=== PATIENT | female | born 1975 | race Caucasian/White ===

== ENCOUNTER 2017-07-20 12:00 | Outpatient (RCR) | payer MEDICAID, SELFPAY ==
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
--- NOTE | 2017-10-13 15:37 | HP.PTDCSUM_ITS ---
HP - PT D/C Summary It has been my pleasure to treat MIGUEL ÁNGEL NARAYAN under orders from MANJU ROBINS, for the diagnosis of OPEN DISPLACED FRACTURE OR RIGHT CALCANEUS ROUTINE HEALING for a total of 22 visit(s). Discharge Date: Please see the following information for a summary of their discharge status. - Subjective Subjective: Doing good .. Happy with progress . Plan to cont with PT in [place]. Pateint to return to work partime per MD. Patient has plantarfascitis gave boot at night. RTD in 6weeks - Pain Right Ankle Pain Intensity (Out of 10): 3 - Overall Improvement % Improvement: 75 - Objective Objective/Function: POSTURE: slight pes planus. GAIT: mild decrease stance time heelstike to toe off. AROM: 3 degrees DF,PF 60 degrees,IN 15 degrees, eversion 5 degrees. MMT: anterior tibialis 4/5,posterior tibialis ,peroneous 4/ 5,G-S 3+/5. PROPRIOCEPTION: mild impaired right to left - Goals Goal 1:: Independant with and HEP Goal Progress: Goal Met Goal 2:: Decrease pain ankle 60% or greater to improve function with and gait. Goal Progress: Goal Met Goal 3:: Patient improve AROM DF 5 derees from 0,PF 60 degrees and inversion 10- 15 degrres to improve function. Goal Progress: Progressing Goal 4:: Patient increase strength of ankle DF 4/5,EV/IN 4-/5,PF 3+/5 to improve function with gait Goal Progress: Goal Met Goal 5:: Patient to ambulate with least restrictive device community distances with improved gait and WB with improved quality of gait Goal Progress: Goal Met Goal 6:: Patient improve proprioception right ankle to improve gait . Goal Progress: Goal Met - Plan Plan: D/C - D/C Information If there are questions or concerns regarding this patient's physical therapy, please feel free to call me at [phone]. Thank you for the referral of this patient. Sincerely, Eduardo Crowley, PT,
== END 2017-07-20 19:00 | disposition home or self-care (01) ==
LOC: PT 12:00
PROVIDERS: Family Provider Family Medicine; PCP Family Medicine
DX: S92.001D Unspecified fracture of right calcaneus, subsequent encounter for fracture with routine healing (principal); Z98.890 Other specified postprocedural states
CPT/HCPCS: 97110; 97113; 97162; 97530

== ENCOUNTER 2020-01-15 12:40 | Emergency (ER) | payer MEDICAID, SELFPAY ==
[2020-01-15 12:40] VITALS: BP 159/100; PULSE 89; RESP 18; TEMP 36.9; O2SAT 96; BMI 29.9
--- NOTE | 2020-01-15 12:45 | EKG12_ITS ---
Test Reason : CP Blood Pressure : / mmHG Vent. Rate : 087 BPM Atrial Rate : 087 BPM P-R Int : 152 ms QRS Dur : 088 ms QT Int : 362 ms P-R-T Axes : 046 071 054 degrees QTc Int : 435 ms Normal sinus rhythm Normal ECG Confirmed by TEA CORTES, CASPER ([id number]), food editor MICKEY DA SILVA ([id number] on 01/16/2020 2:36:50 PM Referred By: RULA Confirmed By:MARIA METCALF MD
--- NOTE | 2020-01-15 12:46 | ED.RN ---
NO OLD EKGS
--- NOTE | 2020-01-15 12:49 | EKG12_ITS ---
Test Reason : CP REPEAT Blood Pressure : / mmHG Vent. Rate : 063 BPM Atrial Rate : 063 BPM P-R Int : 136 ms QRS Dur : 086 ms QT Int : 398 ms P-R-T Axes : 052 062 053 degrees QTc Int : 407 ms Normal sinus rhythm Normal ECG Confirmed by TEA CORTES, CASPER ([id number]), graphic editor IKER PAT ([id number]) on 01/16/2020 12:09:40 PM Referred By: MARYBEL Confirmed By:MARIA METCALF MD
--- NOTE | 2020-01-15 13:08 | NURSING ---
NO OLD EKGS
--- NOTE | 2020-01-15 13:30 | RAD_ITS ---
STUDY: X-RAY CHEST REASON FOR EXAM: Female, 44 years old. SUDDEN ONSET CHEST PAIN WITH RADIATION INTO RIGHT ARM TECHNIQUE: Single AP portable view of the chest. COMPARISON: None. FINDINGS: The lungs are clear and expanded. Scattered calcified granulomas. There is no demonstrated pleural abnormality. Normal size heart. Normal mediastinum and yesenia. Normal visualized pulmonary arteries. Normal visualized aortic arch and descending thoracic aorta. Normal visualized thoracic spine. Normal visualized ribs, clavicles, and shoulders. There is no demonstrated abnormality of the visualized soft tissue structures of the upper abdomen. RAD/Chest 1 View (Portable) IMPRESSION: Normal x-ray examination of the chest. Electronically Signed: Hunter Good, at 13:56 EST , Service support ,
[2020-01-15 13:33] LABS: Absolute Lymphocyte Count 2.41 X10^3/uL (0.83-4.51); Absolute Neutrophil Count 6.2 X10^3/uL (2.0-7.7); Basophil# 0.04 X10^3/uL; Basophil% 0.4 % (0-1); Eosinophil# 0.15 X10^3/uL; Eosinophils% 1.6 % (0-5); Hematocrit 37.9 % (37-47); Hemoglobin 12.3 g/dL (12.0-15.0); Lymphocyte # 2.41 X10^3/ul (4.0); Lymphocyte % 25.1 % (19-41); Mean Corp Hgb Conc 32.5 g/dL (32-36); Mean Corpuscular Hgb 30.8 pg (27.0-32.0); Mean Platelet Vol. 9.8 fl (6.2-12.0); Monocyte# 0.74 X10^3/uL; Monocyte% 7.7 % (0-10); NRBC Flagged by Analyzer 0 % (0-5); Neutrophil # 6.23 X10^3/uL (2.7-7.7); Neutrophil % 64.8 % (47-70); Platelet Count 346 K/mm3 (150-450); Prothrombin Time (Protime)PT. 12.3 SECONDS (11.7-14.9); RBC Distribution Width CV 11.9 % (11.6-14.6); RBC Distribution Width SD 41.7 fl (35.1-43.9); Red Blood Count 3.99 M/mm3 (4.2-5.4); White Blood Count 9.6 K/mm3 (4.4-11.0)
[2020-01-15 13:41] LABS: Anion Gap 5 (5-15); BUN 13 mg/dL (7-18); BUN/Creat Ratio 14.3 RATIO (10-20); Calcium,Total 9.1 mg/dL (8.5-10.1); Chloride 109 mmol/L (98-107); Creatinine, Serum 0.91 mg/dL (0.55-1.02); EST Glomerular Filtration Rate 71 mL/min (>60); Est Glom Filt Rate - Afr Amer 85 mL/min (>60); Estimated Creatinine Clearance 69.51 ml/min; Glucose 106 mg/dL (74-106); Potassium 3.5 mmol/L (3.5-5.1); Sodium Level 143 mmol/L (136-145)
[2020-01-15] MEDS: Aspirin 81 MG TAB.CHEW 324 MG PO (14:01)
[2020-01-15 14:02] VITALS: BP 165/85; PULSE 80; RESP 20; O2SAT 100
[2020-01-15 16:16] VITALS: BP 148/77; PULSE 76; RESP 16; O2SAT 98
--- NOTE | 2020-01-15 16:37 | ED.VIS.CHEST ---
History of Present Illness Chief Complaint: Chest Pain Informant: Patient Onset: Today Activity at onset: Light Activity Quality: Sharp, Stabbing Location: Right Parasternal Worsened By: Breathing Relieved By: Rest Narrative: Patient is a 44-year-old female with history of fibromyalgia, rheumatoid arthritis and degenerative disc disease presenting with chest pain. She states started approximately 1 hour prior to arrival. She states she was just walking at work but been taking it easy because she injured her back a week ago. She suddenly developed pain in her right parasternal area. She states it is sharp and stabbing in nature. It is worse with deep breathing and radiates down her right arm. She states the pain is started to subside and she has no associated sweating, nausea or vomiting. Her sister was concerned that maybe this could be her heart so she recommend she come to the ER to be evaluated further. Patient denies any injury. It is worse with direct palpation. Patient denies any swelling of her legs. She denies any history of DVT or PE. She is not on any estrogen supplements. Denies any other complaints at this time. Past Medical History - Allergies and Home Meds Allergies/Adverse Reactions: Allergies No Known Allergies Allergy (Verified 01/15/20 12:45) Primary Care Physician: Brittney Mathis WORLD HISTORY TEACHER, WORLD HISTORY TEACHER-C [Primary Care Provider] - Past Medical History: - - Fibromyalgia, chronic back pain, rheumatoid arthritis Surgical History: noncontributory Smoking Status: Never smoker Review of Systems General: Denies: Chills, Fever, Sweats Eyes: Denies: Visual changes - bilaterally, Diplopia ENT: Denies: Rhinorrhea, Sore throat Cardiovascular: Reports: Chest pain. Denies: Palpitations Respiratory: Reports: Dyspnea. Denies: Cough, Dyspnea on exertion Gastrointestinal: Denies: Abdominal pain, Nausea, Vomiting, Diarrhea, Melena, Hematochezia Genitourinary: Denies: Dysuria, Hematuria, Frequency Musculoskeletal: Denies: Back pain, Extremity Pain Skin: Denies: Rash, Wounds Neurological: Denies: Headache, Weakness, Numbness Physical Exam Vital Signs/Narrative: Vital Signs Temp Pulse Resp BP Pulse Ox 01/15/20 16:16 76 16 148/77 H 98 01/15/20 14:02 80 20 H 165/85 H 100 01/15/20 12:40 98.4 F 89 18 159/100 H 96 Inital Vital Signs reviewed: Yes General: Well nourished, Well developed, No Acute Distress Head: Normocephalic, Atraumatic Eyes: Perrl, EOMI ENT: Moist mucous membranes, No rhinorrhea Neck: Supple, Nontender Cardiovascular: Regular rate, Regular rhythm, No murmurs Respiratory: No distress, CTA bilaterally, Chest tenderness - Right anterior mid parasternal area, highly reproducible palpation Abdomen: Soft, Nontender, Nondistended, Normal bowel sounds Back: Nontender, Normal Inspection Extremities: Nontender, No edema Skin: Normal color, No rash Neurological: Alert, Oriented x3, Cranial nerves II-XII grossly intact, Normal Strength, Normal Sensation Psychological: Normal affect, Normal Mood Diagnostic/Tx/Re-eval Chest X-Ray - ED: 1 View, Read by ED Physician, Read by Radiologist, No Acute Disease Clinical Impression(s) from Imaging Studies Chest X-Ray 01/15/20 13:30 IMPRESSION: Normal x-ray examination of the chest. Electronically Signed: Hunter Good, at 13:56 EST , Service support , Laboratory Data 01/15/20 01/15/20 01/15/20 13:05 13:05 13:05 WBC 9.6 RBC 3.99 L Hgb 12.3 Hct 37.9 MCV 95.0 MCH 30.8 MCHC 32.5 RDW Std Deviation 41.7 RDW Coeff of Simone 11.9 Plt Count 346 MPV 9.8 Immature Gran % (Auto) 0.400 Neut % (Auto) 64.8 Lymph % (Auto) 25.1 [place] % (Auto) 7.7 Eos % (Auto) 1.6 Baso % (Auto) 0.4 Absolute Neuts (auto) 6.2 Absolute Lymphs (auto) 2.41 Nucleated RBC % 0 PT 12.3 INR 1.0 Sodium 143 Potassium 3.5 Chloride 109 H Carbon Dioxide 29.0 Anion Gap 5 BUN 13 Creatinine 0.91 Estim Creat Clear Calc 69.51 Est GFR (MDRD) Af Amer 85 Est GFR (MDRD) Non-Af 71 BUN/Creatinine Ratio 14.3 Glucose 106 Calcium 9.1 Troponin I < 0.015 01/15/20 16:08 WBC RBC Hgb Hct MCV MCH MCHC RDW Std Deviation RDW Coeff of Simone Plt Count MPV Immature Gran % (Auto) Neut % (Auto) Lymph % (Auto) [place] % (Auto) Eos % (Auto) Baso % (Auto) Absolute Neuts (auto) Absolute Lymphs (auto) Nucleated RBC % PT INR Sodium Potassium Chloride Carbon Dioxide Anion Gap BUN Creatinine Estim Creat Clear Calc Est GFR (MDRD) Af Amer Est GFR (MDRD) Non-Af BUN/Creatinine Ratio Glucose Calcium Troponin I < 0.015 - Rhythm Strip Rhythm Strip: Sinus Rhythm Rate: 87 Ectopy: None - EKG Initial EKG Interpretation: Sinus Rhythm, - - Sinus rhythm at a rate of 87 Normal axis Normal intervals Normal ST segments Treatment: Aspirin GRAEME Risk: No Positive GRAEME Elements Score: 0 - Medical Decision Making Patient evaluated for sudden onset of chest pain. Is pleuritic in nature. Patient is PERC negative and I do not suspect a PE as a cause of her symptoms. Her heart score is 2. She is low risk for ACS. She does not have any acute EKG changes. Troponin is negative x2. I suspect the pain is likely muscle skeletal but it could be pleuritic in nature. Patient be discharged home for outpatient follow-up. I do not think she requires extended cardiac evaluation or admission at this time. I think she stable for outpatient follow-up. She is instructed to follow-up with her primary care doctor. Patient is counseled on signs and symptoms requiring return to the emergency room. Patient verbalizes agreement and understand this plan. Patient discharged home in stable and improved condition. ED Disposition - Plan for ED Patient: Disposition: Home or Assisted Living Diagnosis: Chest pain Instructions: ED Chest Pain Atypical Unkn Cause Referrals: Brittney Mathis WORLD HISTORY TEACHER, WORLD HISTORY TEACHER-C [Primary Care Provider] -
[2020-01-15 17:06] VITALS: BP 144/89; PULSE 70; RESP 18; O2SAT 100
== END 2020-01-15 17:08 | disposition home or self-care (01) ==
PROVIDERS: Emergency Provider Emergency Medicine; PCP Nurse Practitioner Family
DX: R07.9 Chest pain, unspecified (principal)
CPT/HCPCS: 71045; 80048; 84484; 85025; 85610; 93005; 99285; A4216

== ENCOUNTER 2020-04-22 07:34 | Emergency (ER) | payer MEDICAID, SELFPAY ==
[2020-04-22 07:35] VITALS: BP 163/111; PULSE 101; RESP 20; TEMP 36; O2SAT 98; BMI 31.7
[2020-04-22 07:40] VITALS: TEMP 36; BMI 31.7
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
--- NOTE | 2020-04-22 07:46 | CT_ITS ---
STUDY: CT BRAIN WITHOUT CONTRAST REASON FOR EXAM: Female, 45 years old. FALL ON ICE HITTING BACK OF HEAD RADIATION DOSAGE (If Supplied By Facility): CTDIvol = ( 44.99 ) mGy, DLP = ( 812.98 ) mGycm TECHNIQUE: Transaxial CT imaging of the brain was performed without administration of intravenous contrast material. Coronal and sagittal reconstructions were performed. Individualized dose optimization techniques were used for this CT. COMPARISON: None. FINDINGS: Right posterior scalp hematoma near the midline. Normal calvarium. Normal size ventricles and extra-axial spaces for the patient''s age. Normal white matter tracts of the cerebral hemispheres. Normal basal ganglia and thalami. Normal brainstem. Normal cerebellum. There is no intracranial hemorrhage. There are no findings of an acute ischemic infarction. Normal visualized paranasal sinuses. CT/Brain/Head without Contrast IMPRESSION: Right posterior scalp hematoma near the midline otherwise negative noncontrast CT head scan. Electronically Signed: Sanjiv Jurado MD at 8:28 EST , Service support ,
--- NOTE | 2020-04-22 07:47 | ED.VIS.GEN ---
History of Present Illness Chief Complaint: Head Injury Informant: Patient Narrative: 45-year-old female states that 20 minutes prior to arrival she stepped onto the ice slipped and fell backwards striking her head. No known loss of consciousness. No vomiting but she does note nausea. No blood thinners. No seizure activity. Patient states that her bilateral arms were tingling that has improved. She notes some superficial cuts on her hand. She notes that her tetanus is up-to-date. She also notes some generalized soreness to her shoulders and neck. Past Medical History - Allergies and Home Meds Allergies/Adverse Reactions: Allergies No Known Allergies Allergy (Verified 04/22/20 07:34) Primary Care Physician: Brittney Mathis [employer] BLOWER, [employer] CON[employer]TER BLOWER-C [Primary Care Provider] - 1 Week if not improving Past Medical History: None Surgical History: noncontributory Smoking Status: Never smoker Drugs: None Review of Systems General: Denies: Chills, Fever, Sweats Eyes: Denies: Visual changes - bilaterally, Diplopia ENT: Denies: Rhinorrhea, Sore throat Cardiovascular: Denies: Chest pain, Palpitations Respiratory: Denies: Dyspnea, Cough, Dyspnea on exertion Gastrointestinal: Denies: Abdominal pain, Nausea, Vomiting, Diarrhea, Melena, Hematochezia Genitourinary: Denies: Dysuria, Hematuria, Frequency Musculoskeletal: Reports: Neck pain. Denies: Back pain, Extremity Pain Skin: Reports: Abrasions. Denies: Rash Neurological: Reports: Headache, Parasthesia. Denies: Weakness, Numbness Physical Exam Vital Signs/Narrative: Vital Signs Temp Pulse Resp BP Pulse Ox 04/22/20 07:40 96.8 F L 04/22/20 07:35 96.8 F L 101 H 20 H 163/111 H 98 Inital Vital Signs reviewed: Yes General: Well nourished, Well developed, No Acute Distress Head: Normocephalic, Trauma - There is a hematoma to the occiput Eyes: Perrl, EOMI ENT: Moist mucous membranes, No rhinorrhea Neck: Supple, - - Mild diffuse tenderness to palpation Cardiovascular: Regular rate, Regular rhythm, No murmurs Respiratory: No distress, CTA bilaterally, Chest nontender Abdomen: Soft, Nontender, Nondistended, Normal bowel sounds Back: Nontender, Normal Inspection Extremities: No edema, Tenderness - Left hand full range of motion no significant swelling minimal tenderness Skin: Normal color, No rash, Trauma - Superficial abrasions to the dorsum of the left hand and fingers. Neurological: Alert, Oriented x3, Cranial nerves II-XII grossly intact, Normal Strength, Normal Sensation, - - GCS is 15 Psychological: Tearful Diagnostic/Tx/Re-eval Clinical Impression(s) from Imaging Studies Brain CT 04/22/20 07:46 IMPRESSION: Right posterior scalp hematoma near the midline otherwise negative noncontrast CT head scan. Electronically Signed: Sanjiv Jurado MD at 8:28 EST , Service support , Cervical Spine CT 04/22/20 07:46 IMPRESSION: 1. No CT evidence of acute fracture or malalignment of the cervical spine and the craniocervical junction. 2. Degenerative disc space height narrowing with anterior and posterior marginal spurs at C5-C6 and C6-C7 disc space levels. Electronically Signed: Sanjiv Jurado MD at 8:30 EST , Service support , - Medical Decision Making CT imaging of the brain skull and cervical spine were obtained. No obvious fractures or intracranial hemorrhage noted. Patient received Tylenol and Zofran. She is going to be discharged home with supportive care return if worsening or concerns. Would asked that she follow-up with her doctor in 1 week especially if she develops concussive symptoms. ED Disposition - Plan for ED Patient: Disposition: Home or Assisted Living Diagnosis: Cervical muscle strain, Scalp hematoma, Head injury, Arm paresthesia, right, Arm paresthesia, left Instructions: ED Head Injury (Adult), ED Neck Sprain or Strain Prescriptions: Ondansetron [Zofran Odt] 4 mg PO Q6H PRN PRN #10 tab PRN Reason: Nausea Prescription Printed Referrals: Brittney Mathis [employer], [facility] [employer] BLOWER-C [Primary Care Provider] - 1 Week if not improving
[2020-04-22] MEDS: Ondansetron ODT 4 MG Tablet PO (07:50)
[2020-04-22] MEDS: Acetaminophen 500 MG Tablet 1000 MG PO (07:50)
[2020-04-22 08:35] VITALS: RESP 16
== END 2020-04-22 08:36 | disposition home or self-care (01) ==
PROVIDERS: Emergency Provider Emergency Medicine; PCP Nurse Practitioner Family
DX: S16.1XXA Strain of muscle, fascia and tendon at neck level, initial encounter (principal); S00.03XA Contusion of scalp, initial encounter; S09.90XA Unspecified injury of head, initial encounter; R20.2 Paresthesia of skin; W00.0XXA Fall on same level due to ice and snow, initial encounter
CPT/HCPCS: 70450; 72125; 99283

== ENCOUNTER 2021-07-26 09:33 | Emergency (ER) | payer MEDICAID, SELFPAY ==
[2021-07-26 09:36] VITALS: BP 185/117; PULSE 83; RESP 17; TEMP 36.1; O2SAT 95; BMI 30.4
--- NOTE | 2021-07-26 09:55 | EX.ED.UPPERE ---
HPI History of Present Illness Chief Complaint: Upper Extremity Injury Detail of Chief Complaint: Right hand pain due to blunt trauma Informant: patient Occured/Mechanism Mechanism/Context: Yes injury and Yes blunt trauma Onset/Context/Timing Onset: Yesterday Context: Sudden Onset Timing: Continuous Quality of Pain: Dull and Aching Location: Over the MCP joint of the long and ring finger Current Severity: Mild Maximum Severity: Moderate Worsened by: Movement Relieved by: Baetter with rest Associated Symptoms Associated Symptoms: Negative for Parasthesia, Weakness and Loss of Funtion Narrative Narrative: Patient is a 46-year-old [id number] woman who states she injured her right hand yesterday wrestling with her son. Localizes the pain over the MCP joint of her long and ring finger. She denies paresthesia, anesthesia or motor weakness. He does report pain with movement or use of her fingers. She has no other complaints Prior similar symptoms: No Recent Illness/Hospitalization: No PFSH PFSH Medical History Fibromyalgia Home Medications buspirone 15 mg PO TID 04/22/20 [History Last Taken Unknown] ondansetron 4 mg PO Q6H PRN PRN #10 tab 04/22/20 [Rx Last Taken Unknown] trazodone 100 mg PO TID 04/22/20 [History Last Taken Unknown] Allergy/AdvReac Type Severity Reaction Status Date / Time No Known Allergies Allergy Verified 07/26/21 09:35 Social History (Updated 07/26/21 @ 09:[address] Brian Finch MD) household members: family Smoking Status: Never smoker substance use type: does not use ROS ROS ED Constitutional Constitutional ED: Denies chills, fever(s) or subjective Musculoskeletal Musculoskeletal: Denies myalgias or neck pain Integumentary Denies Abrasions or rash Neurologic Neurologic: Denies paresthesias or weakness Hematologic/Lymphatic Hematologic/Lymphatic: Denies easy bleeding or easy bruising EXAM Physical Exam Const Vital Signs: 07/26/21 09:36 Temperature 97.0 F L Temperature Source Temporal Pulse Rate 83 Respiratory Rate 17 Blood Pressure 185/117 H Blood Pressure Mean 139 Pulse Ox 95 Oxygen Delivery Method Room Air Positive well nourished and well developed General Appearance ED: well developed and NAD; Negative for cyanotic or diaphoretic HEENT normocephalic and atraumatic Eyes PERRL and EOMs intact bilaterally Resp normal respiratory effort Cardio regular rate and regular rhythm Extremity full ROM; Negative for normal to inspection Extremity Narrative: There is swelling over the MCP joint of the right long and ring finger. The extensor commonest tendon is functionally intact. Median, radial and ulnar function intact. There is no subungual hematoma noted. There is no abrasion or laceration noted. General Extremety ED: Negative for edema General Extremity: Negative for edema Neuro oriented x3 and CN's II-XII intact bilaterally Sensorium / Orientation: alert Psych mental status grossly normal Skin Lesions: no lesions Rashes: no rashes Trauma: no lacerations or abrasions MDM MDM MDM Narrative Medical decision making narrative: X-ray of the hand was obtained to evaluate for contusion versus fracture. Radiography Diagnostic Testing: Three-view x-ray of the right hand was independently reviewed and interpreted by me at 1022 as negative for fracture, subluxation or dislocation. There is mild soft tissue swelling noted. Discharge Plan Triage Chief Complaint: Upper Extremity Injury ED Provider: Brian Finch Dx/Rx/DC Orders Clinical Impression: Contusion of multiple sites of right hand and fingers Instructions: ED Hand Contusion Prescriptions: No Action trazodone 100 MG tablet 100 mg PO TID RF: 0 buspirone 15 MG tablet 15 mg PO TID RF: 0 ondansetron 4 MG tablet 4 mg PO Q6H PRN PRN (Reason: Nausea) Qty: 10 RF: 0 Primary Care Provider: Brittney Mathis NP Referrals: Brittney Mathis [employer]LLER, HOTEL CONTROLLER-C [Primary Care Provider] - As Needed Activity Restrictions/Additional Instructions: Apply ice to hand 8 times a day for the next 2 to 3 days. You may take either 3 ibuprofen tablets every 6-8 hours or 2 Aleve tablets every 12 hours for the next 3 to 5 days for pain control Disposition Disposition: Home, Self Care
--- NOTE | 2021-07-26 09:58 | RAD_ITS ---
STUDY: X-RAY - RIGHT HAND REASON FOR EXAM: Pain of the third through fifth metacarpals, right hand injury. TECHNIQUE: 3 view(s) of the hand. COMPARISON: None. FINDINGS: Normal radiocarpal articulation. Normal distal radioulnar joint. Normal visualized carpal bones. Normal carpal articulations Normal carpometacarpal articulation of the thumb. Normal second through fifth carpometacarpal joints. Normal metacarpi. Normal metacarpophalangeal joint of the thumb. Normal interphalangeal joint of the thumb. Normal proximal and distal phalanges of the thumb. Normal metacarpophalangeal joints of the second through fifth fingers. Normal proximal and distal interphalangeal joints of the second through fifth fingers. Normal phalanges of the second through fifth fingers. The soft tissue structures are unremarkable. RAD/Hand Min 3 Views IMPRESSION: No demonstrated right hand fracture. Electronically Signed: Regulo Walker MD at 10:28 EDT ,
== END 2021-07-26 10:44 | disposition home or self-care (01) ==
PROVIDERS: Emergency Provider Emergency Medicine; PCP Nurse Practitioner Family; Visit Provider Emergency Medicine
DX: S60.221A Contusion of right hand, initial encounter (principal); Y93.72 Activity, wrestling
CPT/HCPCS: 73130; 99282

== ENCOUNTER → 2023-09-25 | Outpatient (CLI) | payer OTHER, SELFPAY ==
[2023-09-25 11:43] LABS: Cholesterol 198 mg/dL (200); High Density Lipoprotein 43 mg/dL; Thyroid Stim Hormone (TSH) 1.59 uIU/mL (0.358-3.74); Triglycerides 123 mg/dL; Very Low Density Lipoprotein 25 mg/dL (5-40)
== END | disposition home or self-care (01) ==
LOC: LAB 10:20
PROVIDERS: PCP Internal Medicine; Referring Provider Internal Medicine Cardiovascular Disease; Visit Provider Internal Medicine Cardiovascular Disease
DX: I10 Essential (primary) hypertension (principal); R07.9 Chest pain, unspecified
CPT/HCPCS: 36415; 80061; 84443

== ENCOUNTER → 2023-10-24 | Outpatient (CLI) | payer OTHER, SELFPAY ==
--- NOTE | 2023-10-24 13:50 | ECHOD_ITS ---
Reason For Study: CHEST PAIN Procedure This was a 2D Doppler, Color Flow transthoracic echocardiogram. Exam performed in department. Left Ventricle Mild concentric left ventricular hypertrophy. The left ventricular ejection fraction is 65 %. No evidence for diastolic dysfunction. Right Ventricle Normal right ventricle. Atria The left and right atria are normal. Mitral Valve Trivial mitral valve insufficiency. Tricuspid Valve Normal tricuspid valve. Aortic Valve Trisinus/trileaflet aortic valve. Pulmonic Valve Mild (1+) pulmonic valve insufficiency. Great Vessels Normal sized aortic root. Pericardium/Pleural No pericardial effusion. MMode/2D Measurements & Calculations LVIDd: 4.4 cm IVSd: 1.3 cm LVOT diam: 2.1 cm LVIDs: 2.8 cm LVPWd: 0.82 cm LVOT area: 3.5 cm2 RVDd: 3.4 cm FS: 35.8 % Ao root diam: 2.9 cm LAV(MOD-bp): 26.6 ml LVAd ap4: 19.9 cm2 LAV(MOD-bp) Indexed: 13.9 ml/m2 LVLd ap4: 6.6 cm LAV(MOD-sp2): 30.2 ml EDV(MOD-sp4): 49.8 ml LAV(MOD-sp4): 23.0 ml EDV(sp4-el): 50.8 ml LVAs ap4: 10.1 cm2 LVLs ap4: 5.3 cm ESV(MOD-sp4): 16.5 ml ESV(sp4-el): 16.3 ml EF(MOD-sp4): 66.9 % EF(sp4-el): 67.9 % LVAd ap2: 19.3 cm2 SV(MOD-sp4): 33.3 ml SV(MOD-sp2): 28.8 ml LVLd ap2: 6.9 cm EDV(MOD-sp2): 43.4 ml EDV(sp2-el): 45.7 ml LVAs ap2: 10.0 cm2 LVLs ap2: 5.8 cm ESV(MOD-sp2): 14.6 ml ESV(sp2-el): 14.7 ml EF(MOD-sp2): 66.4 % SV(sp4-el): 34.5 ml LA dimension(2D): 3.2 cm LA A4 area: 11.4 cm2 RA A4 area: 8.3 cm2 TAPSE: 1.9 cm Time Measurements MV dec time: 0.15 sec Doppler Measurements & Calculations MV E max jeremie: 68.5 cm/sec Lat Peak E' Jeremie: 6.8 cm/sec Med Peak E' Jeremie: 9.5 cm/sec MV A max jeremie: 67.4 cm/sec E/E' lat: 10.1 E/E' med: 7.2 MV E/A: 1.0 Ao V2 max: 145.1 cm/sec LV V1 max: 105.8 cm/sec MV dec slope: 463.8 cm/sec2 Ao max P.4 mmHg LV V1 max P.5 mmHg Ao V2 mean: 109.5 cm/sec LV V1 mean P.6 mmHg Ao mean P.1 mmHg LV V1 mean: 76.9 cm/sec Ao V2 VTI: 25.9 cm LV V1 VTI: 18.7 cm AV (velocity ratio): 0.72 CHAVO(I,D): 2.5 cm2 CHAVO(V,D): 2.6 cm2 SV(LVOT): 65.3 ml PA V2 max: 102.5 cm/sec PA max PG (full): 1.4 mmHg ECHO/Echo Complete Interpretation Summary Mild concentric left ventricular hypertrophy. The left ventricular ejection fraction is 65 %. No evidence for diastolic dysfunction. Mild (1+) pulmonic valve insufficiency. Ordering Physician: Feroz Celeste Referring Physician: MD Jose Blakely Performed By: Pam Paredes, DOMINGUEZ
== END | disposition home or self-care (01) ==
PROVIDERS: PCP Internal Medicine; Referring Provider Internal Medicine Cardiovascular Disease; Visit Provider Internal Medicine Cardiovascular Disease
DX: R07.9 Chest pain, unspecified (principal); I10 Essential (primary) hypertension
CPT/HCPCS: 93306

== ENCOUNTER → 2023-10-30 | Outpatient (CLI) | payer OTHER, SELFPAY ==
--- NOTE | 2023-10-30 12:20 | CT_ITS ---
STUDY: CT CHEST WITH CONTRAST REASON FOR EXAM: Female, 48 years old. CHEST PAIN, limited chest over read only RADIATION DOSAGE (If Supplied By Facility): CTDIvol = ( 28.87 ) mGy, DLP = ( 966.64 ) mGycm TECHNIQUE: Transaxial imaging was performed following intravenous administration of IV 55mL Isovue-370. Individualized dose optimization techniques were used for this CT. COMPARISON: No relevant priors. FINDINGS: CHEST Bilateral breast implants. The lungs are normal. There is no demonstrated pleural abnormality. There are calcifications of the coronary arteries. Normal mediastinum. Normal hilar regions. Normal unenhanced pulmonary arteries. Normal aorta arch and descending thoracic aorta. Normal osseous structures. Fatty infiltration of the liver. CT/Limited Chest CT Cardiac Only IMPRESSION: Coronary artery calcification. Fatty infiltration of the liver. Electronically Signed: Hunter Good MD at 15:32 EDT ,
[2023-10-30 12:28] VITALS: BP 135/80; PULSE 83; RESP 18; TEMP 36.7; O2SAT 97; BMI 29.0
[2023-10-30] MEDS: 0.9% Saline Lock 10 ML Syringe IV (12:33)
[2023-10-30 12:36] VITALS: BP 110/73; PULSE 89
[2023-10-30] MEDS: Metoprolol Tartrate 5 MG/5 ML Vial IV (12:36)
[2023-10-30 12:46] LABS: CREATININE FINGERSTICK < 1.0 mg/dL (0.55-1.02); EGFR FINGERSTICK > 60.0000 mL/min (>60)
[2023-10-30 13:16] VITALS: BP 107/59; PULSE 74; PULSE 78; RESP 18
[2023-10-30] MEDS: Nitroglycerin SL (ED/IMG/CATH) 0.4 MG TABLET SL (13:16)
--- NOTE | 2023-11-14 16:43 | CCTA.WCONT ---
CCTA w/Cont Coronary Arteries Date of Study:: 10/30/23 Chest pain Coronary Calcium Scoring: High-resolution Computed Tomographic imaging of the chest was performed on [10/30/23 ], with particular attention paid to the coronary arteries. Intravenous contrast agent was administered per protocol and images reconstructed and displayed. LEFT MAIN CORONARY ARTERY: Arises from the left coronary cusp with no significant stenosis present [] LEFT ANTERIOR DESCENDING CORONARY ARTERY: Arises from the left main coronary artery with eccentric mid segment calcification and mixed plaque noted but no high-grade obstruction noted the vessel continues towards the apex of the ventricle. [] LEFT CIRCUMFLEX CORONARY ARTERY: Nondominant vessel with a focal nonobstructive plaque noted in the proximal segment. [] RIGHT CORONARY ARTERY: Dominant right coronary artery with no significant stenosis present. [] THORACIC AORTA: [] PULMONARY ARTERY: [] LEFT ATRIUM/APPENDAGE: [] MITRAL VALVE: [] AORTIC VALVE: [] LEFT VENTRICLE: [] CORONARY CALCIUM SCORE: Not performed Conclusion: Coronary CTA with no high-grade stenosis noted. Mild mid eccentric plaque noted in the mid LAD. []
== END | disposition home or self-care (01) ==
LOC: CT 12:06
PROVIDERS: PCP Internal Medicine; Referring Provider Internal Medicine Cardiovascular Disease; Visit Provider Internal Medicine Cardiovascular Disease
DX: R07.9 Chest pain, unspecified (principal)
CPT/HCPCS: 75574; 76380; 96374; Q9967; A4216

== ENCOUNTER → 2023-11-14 | Outpatient (CLI) | payer OTHER, SELFPAY ==
[2023-11-17 12:09] LABS: HPV APTIMA, High Risk Negative (Negative)
== END | disposition home or self-care (01) ==
LOC: LABSPEC 14:19
PROVIDERS: PCP Internal Medicine; Referring Provider Nurse Practitioner Family; Visit Provider Nurse Practitioner Family
DX: Z12.4 Encounter for screening for malignant neoplasm of cervix (principal)
CPT/HCPCS: 87624; 88175; G0145

== ENCOUNTER 2023-12-04 14:12 | Emergency (ER) | payer OTHER, SELFPAY ==
[2023-12-04 14:14] VITALS: BP 130/77; PULSE 82; RESP 18; TEMP 36; O2SAT 97; BMI 29.7
--- NOTE | 2023-12-04 14:56 | EKG12_ITS ---
Test Reason : ALLERGIC REACTION Blood Pressure : / mmHG Vent. Rate : 080 BPM Atrial Rate : 080 BPM P-R Int : 164 ms QRS Dur : 090 ms QT Int : 370 ms P-R-T Axes : 057 071 058 degrees QTc Int : 426 ms Normal sinus rhythm Normal ECG Confirmed by Jimenez Rossi ([id number]), commissioning editor SALMA SHAW ([id number]) on 12/05/2023 10:10:41 AM Referred By: Maco Lopez Confirmed By:Jimenez Rossi
--- NOTE | 2023-12-04 15:00 | EDS_ITS ---
HPI History of Present Illness Chief Complaint: Allergic Reaction Narrative Narrative: Patient is a 48-year-old female with past medical history of fibromyalgia, anxiety, hypertension who presented to the emergency department with a chief complaint of neck swelling. Patient states that within the last hour she was outside working in her garden and pulled her marijuana plants that she normally handles daily and went inside. States that she was sitting on the couch and then all of a sudden noted that she developed some right sided of neck swelling. Patient states that she did not take any medication prior to arrival. She states that her family members did have mono recently. She states that she had felt fine prior to all this suddenly starting. Patient states that she has not had anything like this happen before. [facility] Medical History Restless leg syndrome Depression Insomnia Former smoker Fatigue Chest pain Essential hypertension History of pneumonia Chronic back pain Anxiety Arthritis Fibromyalgia Home Medications ?Medication ?Instructions ?Recorded ?Last Taken ?Type albuterol sulfate 90 mcg/actuation 2 inh inhalation Q4-6H PRN 09/25/23 Unknown History aerosol inhaler shortness of breath or wheezing aspirin 81 mg tablet,delayed 81 mg PO DAILY 09/25/23 Unknown History release (Adult Aspirin Regimen) carvedilol 3.125 mg tablet 3.125 mg PO BID #60 tabs 11/07/23 Unknown Rx hydrochlorothiazide 12.5 mg tablet 12.5 mg PO QDAY #30 tabs 11/07/23 Unknown Rx losartan 50 mg tablet 50 mg PO QDAY #30 tabs 11/28/23 Unknown Rx Allergy/AdvReac Type Severity Reaction Status Date / Time No Known Allergies Allergy Verified 12/04/23 14:13 Family History Mother Cervical cancer Hypertension Arthritis Hyperlipidemia Sister COPD (chronic obstructive pulmonary disease) Asthma Anxiety Bipolar disorder Brother Alcoholic Father Cirrhosis Alcoholic Surgical History S/P ORIF (open reduction internal fixation) fracture delivery delivered S/P breast augmentation Social History adopted: No household members: family and adopted family number of children: 6 current occupational status: employed current occupation: [employer] pets and animals: Yes pets and animals: cat(s), dog(s), bird(s) and fish sexually active: No Smoking Status: Never smoker Tobacco: How many years used: 25 Electronic Cigarette Use: not used alcohol intake: current alcohol intake frequency: a few times a month Alcohol type: wine substance use type: marijuana caffeine: Yes (3) Type: coffee what type of physical activity do you participate in: walking frequency: daily seatbelt use: always do you feel safe at home: Yes ROS ROS ED ROS Narrative Constitutional: Denies any fevers, chills, headaches, lightness, dizziness Eyes, ears, nose, throat: Complains of right-sided neck swelling denies any difficulty swallowing or breathing denies change in vision double vision blurry vision Cardiovascular: Denies chest pain or palpitations Respiratory: Denies cough or wheezing states that she chronically shortness of breath nothing new today Abdomen: Denies abdominal pain nausea vomit diarrhea : Denies any urinary symptoms Neurological: Denies numbness, weakness, tingling Musculoskeletal: Denies any back pain Skin: Denies rashes or lesions EXAM Physical Exam Narrative Exam Narrative: General: Patient was lying in bed rest comfortably did not appear to be acute distress Head: Atraumatic, normocephalic Eyes, ears, nose, throat: PERRL bilateral, EOMI bilateral, no conjunctival injection noted. No posterior pharynx erythema noted uvula midline no tonsillar exudates. No sublingual swelling Neck: Soft, supple, trachea midline, no concern for Ephraim's angina. Patient does have swelling and tenderness to palpation along the anterior cervical nodes bilaterally Cardiovascular: Regular rate and rhythm no murmurs gallops rubs noted Respiratory: Clear to auscultation bilaterally no rales rhonchi or wheezes noted Abdomen: Soft, nondistended, nontender to palpation Extremities: +5/5 strength noted in the bilateral upper and lower extremities, radial pulses +2/4 in the bilateral upper extremities Neurological: Patient is following commands knew that she was at [facility] there is 2023 Skin: Warm, dry, intact. No rashes or lesions noted no hives noted Const Vital Signs: 12/04/23 14:14 12/04/23 15:12 12/04/23 16:00 Temperature 96.8 F L Temperature Source Temporal Pulse Rate 82 70 71 Respiratory Rate 18 17 17 Blood Pressure 130/77 H 123/70 H 113/61 Blood Pressure Mean 94 87 78 Pulse Ox 97 98 99 Oxygen Delivery Method Room Air Room Air Room Air 12/04/23 17:00 Temperature Temperature Source Pulse Rate 78 Respiratory Rate 18 Blood Pressure 115/68 Blood Pressure Mean 83 Pulse Ox 98 Oxygen Delivery Method Room Air MDM MDM MDM Narrative Medical decision making narrative: Patient is a 48-year-old female who presented to the emergency department the chief complaint of neck swelling that started about an hour ago now. Patient will have workup performed here on the differential diagnose includes but not limited to strep throat, mono, allergic reaction. Once workup is obtained reviewed she will be reevaluated. Patient will be given some Benadryl here as well as IV fluids. Patient CBC reviewed and was largely unremarkable no evidence leukocytosis white blood count normal at 9.8, hemoglobin was 11.9, platelet count normal at 276. Patient sodium normal at 137, potassium normal at 4.1, creatinine was noted to be 1.06. Patient AST and ALT were 16 and 29 respectively, monoscreen was negative. Patient's chest x-ray was reviewed as well and showed no acute cardiopulmonary processes. This was reviewed by myself and by radiology. Patient's EKG was reviewed and showed sinus rhythm with a rate of 80 bpm. On reevaluation the patient she states that she is feeling better compared to when she arrived states that she does have some tenderness when she pushes on her neck. Once again patient is nontoxic in appearance no protrusion of her to ngue no sublingual swelling no concern for Ephraim's angina. Patient was vies to use ibuprofen and Tylenol for pain control. She was advised to follow-up with her primary care physician outpatient setting. She was encouraged return with worsening symptoms or any other concerns. She is agreeable this plan she would like to go home at this point time all question concerns answered she was discharged home in stable condition. Lab Data Labs: Laboratory Results - last 24 hr 12/04/23 15:19 WBC 9.8 RBC 3.86 L Hgb 11.9 L Hct 36.0 L MCV 93.3 MCH 30.8 MCHC 33.1 RDW Std Deviation 40.0 RDW Coeff of Simone 11.8 Plt Count 276 MPV 9.9 Immature Gran % (Auto) 0.600 Neut % (Auto) 63.8 Lymph % (Auto) 24.5 Nobles % (Auto) 8.0 Eos % (Auto) 2.6 Baso % (Auto) 0.5 Absolute Neuts (auto) 6.3 Absolute Lymphs (auto) 2.40 Nucleated RBC % 0 Sodium 137 Potassium 4.1 Chloride 106 Carbon Dioxide 25.0 Anion Gap 6 BUN 15 Creatinine 1.06 H Estim Creat Clear Calc 69.22 Est GFR (MDRD) Af Amer 70 Est GFR (MDRD) Non-Af 58 L BUN/Creatinine Ratio 14.2 Glucose 113 H Calcium 8.9 Total Bilirubin 0.30 AST 16 ALT 29 Alkaline Phosphatase 75 Total Protein 6.5 Albumin 3.5 Globulin 3.0 Albumin/Globulin Ratio 1.2 Monoscreen Negative Radiography Diagnostic Testing: Clinical Impression(s) from Imaging Studies Chest X-Ray 12/04/23 15:22 IMPRESSION: Normal x-ray examination of the chest. Electronically Signed: Eric Rodríguez MD at 15:59 EDT , Discharge Plan Triage Chief Complaint: Allergic Reaction ED Provider: Maco Lopez Dx/Rx/DC Orders Clinical Impression: Swelling of lymph nodes Prescriptions: No Action albuterol sulfate 90 mcg/actuation HFA aerosol inhaler 2 inh inhalation Q4-6H PRN (Reason: shortness of breath or wheezing) aspirin [Adult Aspirin Regimen] 81 mg tablet,delayed release (DR/EC) 81 mg PO DAILY hydrochlorothiazide 12.5 mg tablet 12.5 mg PO QDAY Qty: 30 1RF carvedilol 3.125 mg tablet 3.125 mg PO BID Qty: 60 1RF losartan 50 mg tablet 50 mg PO QDAY Qty: 30 1RF Primary Care Provider: Breanna Ortiz Referrals: Breanna Ortiz MD [Primary Care Provider] - Activity Restrictions/Additional Instructions: Use ibuprofen and Tylenol for pain control. Follow-up with your primary care physician outpatient setting. Return with worsening symptoms or any other concerns. Print Language: Arabic Disposition Disposition: Home, Self Care
[2023-12-04] MEDS: 0.9% Normal Saline (1000mL) 1,000 ML 999 ML IV (15:07)
[2023-12-04] MEDS: DiphenhydrAMINE 25 MG Capsule PO (15:07)
[2023-12-04 15:12] VITALS: BP 123/70; PULSE 70; RESP 17; O2SAT 98
--- NOTE | 2023-12-04 15:22 | RAD_ITS ---
STUDY: X-RAY CHEST REASON FOR EXAM: Female, 48 years old. sob TECHNIQUE: Single AP portable view of the chest. COMPARISON: 01/15/2020. FINDINGS: The lungs are clear and expanded. There is no demonstrated pleural abnormality. Normal size heart. Normal mediastinum and yesenia. Normal visualized pulmonary arteries. Normal visualized aortic arch and descending thoracic aorta. Normal visualized thoracic spine. Normal visualized ribs, clavicles, and shoulders. There is no demonstrated abnormality of the visualized soft tissue structures of the upper abdomen. RAD/Chest PA and Lateral IMPRESSION: Normal x-ray examination of the chest. Electronically Signed: Eric Rodríguez MD at 15:59 EDT ,
[2023-12-04 15:32] LABS: Absolute Neutrophil Count 6.3 X10^3/uL (2.0-7.7); Basophil# 0.05 X10^3/uL; Basophil% 0.5 % (0-1); Eosinophil# 0.25 X10^3/uL; Eosinophils% 2.6 % (0-5); Hemoglobin 11.9 g/dL (12.0-15.0); Lymphocyte % 24.5 % (19-41); Mean Corp Hgb Conc 33.1 g/dL (32-36); Mean Corpuscular Hgb 30.8 pg (27.0-32.0); Mean Corpuscular Volume 93.3 fL (81-99); Mean Platelet Vol. 9.9 fl (6.2-12.0); Monocyte# 0.78 X10^3/uL; NRBC Flagged by Analyzer 0 % (0-5); Neutrophil # 6.26 X10^3/uL (2.7-7.7); Neutrophil % 63.8 % (47-70); Platelet Count 276 K/mm3 (150-450); RBC Distribution Width CV 11.8 % (11.6-14.6); Red Blood Count 3.86 M/mm3 (4.2-5.4); White Blood Count 9.8 K/mm3 (4.4-11.0)
[2023-12-04 15:48] LABS: ALB/GLOB Ratio 1.2 RATIO (0.9-2.4); AST(SGOT) 16 U/L (15-37); Alanine Aminotransfer ALT/SGPT 29 U/L (13-56); Albumin, Serum 3.5 g/dL (3.2-5.0); Alkaline Phosphatase 75 U/L (45-117); Anion Gap 6 (5-15); BUN 15 mg/dL (7-18); BUN/Creat Ratio 14.2 RATIO (10-20); Calcium,Total 8.9 mg/dL (8.5-10.1); Chloride 106 mmol/L (98-107); Creatinine, Serum 1.06 mg/dL (0.55-1.02); EST Glomerular Filtration Rate 58 mL/min (>60); Est Glom Filt Rate - Afr Amer 70 mL/min (>60); Estimated Creatinine Clearance 69.22 ml/min; Glucose 113 mg/dL (74-106); Potassium 4.1 mmol/L (3.5-5.1); Protein, Total 6.5 g/dL (6.4-8.2); Sodium Level 137 mmol/L (136-145)
[2023-12-04 16:00] VITALS: BP 113/61; PULSE 71; RESP 17; O2SAT 99
[2023-12-04 16:18] LABS: Internal QC Validated? YES +Cl - CLEAR BKGD; Monotest Negative (Negative); Record Kit Lot#, Mono 13241033
[2023-12-04 17:00] VITALS: BP 115/68; PULSE 78; RESP 18; O2SAT 98
== END 2023-12-04 18:09 | disposition home or self-care (01) ==
PROVIDERS: Emergency Provider Emergency Medicine; PCP Internal Medicine; Referring Provider Emergency Medicine; Visit Provider Emergency Medicine
DX: R22.1 Localized swelling, mass and lump, neck (principal)
CPT/HCPCS: 71046; 80053; 85025; 86308; 87651; 93005; 96360; 99283; J7030; A4216

== ENCOUNTER 2024-02-06 15:30 | Outpatient (RCR) | payer OTHER, SELFPAY ==
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
--- NOTE | 2024-03-14 15:07 | HP.PT.NRP ---
Patient Information Patient Information: MIGUEL ÁNGEL NARAYAN was seen in my office for initial evaluation on 01/10/24. The following Plan of Care was established for this patient: POC Established Initial Frequency: 2x /Week Initial Duration: 4 Weeks Anticipated Interventions Patient/Client Instruction: Educate patient on: Condition and Plan of Care For the Purpose of:: To decrease pain, To increase ROM, To improve ability to perform ADL's, To increase tolerance to activity/condition/position, To improve performance and independence with ADL's, To improve ability of physical actions for home/community/work/leisure, To improve health of tissue, To decrease soft tissue restriction, To increase flexibility/ROM, To prevent re-injury and To improve tolerance to ADL's Therapeutic Exercise to Include: Strength training, Postural training, Flexibilty training and Dynamic Lumbar Stabilization For the Purpose of:: To decrease pain, To increase ROM, To improve muscle performance and motor function, To improve ability of physical actions for home/community/work/leisure, To improve health of tissue, To decrease soft tissue restriction, To improve endurance, To prevent re-injury and To improve tolerance to ADL's TENS: Yes IF ES: Yes Cryotherapy (ice pack, ice massage): Yes Thermo therapy (hot pack): Yes Ultrasound (thermal/non thermal): Yes For the Purpose of:: To decrease pain, To increase ROM, To improve nutrient delivery to tissue, To increase oxygenation perfusion, To improve health of tissue and To decrease soft tissue restriction Last Seen Last Seen: This patient was last seen in our office . Pertinent comments regarding their Physical therapy will appear below: Patient was seen for PT for intial eval for back pain and HEP with DLS and strengthening At this point I will be discontinuing this patient from physical therapy. I would be happy to see this patient again in the future if found appropriate by the physician. Thank you! Eduardo Crowley, PT, Cert MDT, OCS Balance/Gait/Functional tests Balance/Special Test Scores Oswestry Low Back Score: 24
== END 2024-02-06 19:00 | disposition home or self-care (01) ==
LOC: PT 15:30
PROVIDERS: PCP Internal Medicine; Referring Provider Internal Medicine; Visit Provider Internal Medicine
DX: M54.50 Low back pain, unspecified (principal); G89.29 Other chronic pain
CPT/HCPCS: 97035; 97110; 97162

== ENCOUNTER → 2024-02-27 | Outpatient (CLI) | payer OTHER, SELFPAY | END | disposition home or self-care (01) | LOC: PSN 06:54 | PROVIDERS: PCP Internal Medicine; Referring Provider Internal Medicine; Visit Provider Internal Medicine | DX: R06.02 Shortness of breath (principal) | CPT/HCPCS: 94060; 94726; 94729 ==

== ENCOUNTER → 2024-03-11 | Outpatient (CLI) | payer OTHER, SELFPAY ==
--- NOTE | 2024-03-11 09:26 | MRI_ITS ---
STUDY: MRI LUMBAR SPINE WITHOUT CONTRAST REASON FOR EXAM: Female, 49 years old. R sided back pain, sciatica pain TECHNIQUE: Standardized fat and water weighted pulse sequences were obtained in the sagittal and axial planes. COMPARISON: None FINDINGS: T12-L1: Normal endplates. Normal disc height, hydration and morphology. Normal bilateral facet joints. Normal central canal and bilateral lateral recesses. Normal bilateral intervertebral neural foramina. Normal lumbar lordosis. There is no substantial scoliosis. Normal conus medullaris that terminates at the L1. L1-2: Normal endplates. Normal disc height, hydration and morphology. Normal bilateral facet joints. Normal central canal and bilateral lateral recesses. Normal bilateral intervertebral neural foramina. L2-3: Normal endplates. Normal disc height, hydration and morphology. Normal bilateral facet joints. Normal central canal and bilateral lateral recesses. Normal bilateral intervertebral neural foramina. L3-4: Normal endplates. Normal disc height, hydration and morphology. Normal bilateral facet joints. Normal central canal and bilateral lateral recesses. Normal bilateral intervertebral neural foramina. L4-5: Mild broad disc protrusion produces mild spinal stenosis and mild bilateral neural foraminal stenosis. L5-S1: Mild bilateral facet hypertrophy and ligament flavum hypertrophy. Mild broad disc protrusion asymmetric to the right produces mild spinal stenosis, moderate right neural foraminal stenosis and mild left neural foraminal stenosis. Normal visualized sacral ala. Normal visualized paraspinous soft tissue structures. MRI/Spine Lumbar (Routine) IMPRESSION: Multilevel degenerative changes, as described above. Electronically Signed: Delmer Laws MD at 20:20 EST ,
== END | disposition home or self-care (01) ==
LOC: MRI 11:28
PROVIDERS: PCP Internal Medicine; Referring Provider Internal Medicine; Visit Provider Internal Medicine
DX: M54.50 Low back pain, unspecified (principal); G89.29 Other chronic pain
CPT/HCPCS: 72148